=== PATIENT | male | born 1965 | race Caucasian/White ===

== ENCOUNTER → 2021-02-27 15:57 | Outpatient (CLI) | payer OTHER, SELFPAY ==
--- NOTE | ~2021-02-27 | XR_ITS ---
EXAMINATION: XR foot RT min 3V DATE: 02/27/2021 16:19 INDICATION: Right foot pain TECHNIQUE: Weight bearing dorsal plantar, oblique and lateral views of the right foot were obtained. COMPARISON: None. FINDINGS: Bone alignment is normal. No fracture. Joint spaces are normal. No cortical erosions or periosteal re action. Small Achilles and plantar calcaneal spurs. Soft tissues are unremarkable. IMPRESSION: 1. No acute osseous abnormality. Reviewed, dictated and finalized at location A.
== END ==
PROVIDERS: Visit Provider Podiatrist Foot & Ankle Surgery
DX: M79.671 Pain in right foot (principal)
CPT/HCPCS: 73630

== ENCOUNTER 2021-07-09 16:46 | Emergency (ER) | payer OTHER, SELFPAY ==
[2021-07-09 17:01] VITALS: BP 121/67; PULSE 100; RESP 18; TEMP 37; O2SAT 98
--- NOTE | 2021-07-09 17:06 | ED.UPPEXIN ---
HPI - Extremity Injury (Upper) General Chief Complaint: Extremity Injury, Upper Stated Complaint: Swollen Ring Finger Lt hand Time Seen by Provider: 07/09/21 17:06 Source: patient and RN notes reviewed Mode of arrival: ambulatory Limitations: no limitations History of Present Illness HPI narrative: 55-year-old male presents concern for swelling, redness, tenderness to the fourth digit of the left hand. Reports yesterday he pulled out a thorn from that digit that he sustained while cutting down trees. He reports he thinks he removed the entire thorn, is not certain. He denies fever, streaking, body aches, general malaise. Denies distal decrease in sensation, range of motion. Reports he is unable to remove his wedding ring, however has been unable to remove the wedding ring for 10 years because it is too small. MD complaint: injury to: finger Related Data Home Medications Medication Instructions Recorded Confirmed No Home Medications 07/09/21 07/09/21 Allergies Allergy/AdvReac Type Severity Reaction Status Date / Time No Known Allergies Allergy Unknown Verified 07/09/21 17:16 Review of Systems Review of Systems: CONSTITUTIONAL: Denies malaise, chills, sweats, or fever. SKIN: Reports puncture wound to the palmar aspect of the fourth digit of the left hand with surrounding swelling, redness, tenderness. MUSCULOSKELETAL: Denies muscle skeletal pain, decreased range of motion, decreased sensation, myalgia. NEUROLOGIC: Denies numbness, weakness. All systems reviewed & are unremarkable except as noted in HPI and below PMFSH Comments At time of signature, agree with nursing past medical, surgical, social and family history. There is no relevant family history pertinent to the presenting complaint Exam Narrative: GENERAL: Well-appearing, well-nourished, and in no acute distress. HEAD: Normocephalic EYES: PERRLA, conjunctivae clear NECK: Supple. CHEST: Speaks in full sentences. No respiratory distress. HEART: Regular rate and rhythm. Normal and equal peripheral pulses. EXTREMITIES: Fourth digit of left hand has normal strength and sensation. 5/5 strength with digit flexion, extension. Range of motion normal. No clubbing, cyanosis noted. Mild tenderness to palpation at the puncture wound site. Normal digital cascade with flexion of fingers, median, ulnar and radial nerve intact. Normal sensation of each side of finger. Can perform 'okay' sign, 'cross over finger test of index and middle fingers' and 'thumbs up' sign. No scissoring. Normal thumb opposition. Good capillary refill and radial pulse. Distal capillary refill less than 3 seconds. SKIN: Warn, dry, intact, pink. Puncture wound without foreign body visible or palpable noted to the palmar aspect of the fourth digit of the left hand between the PIP and MIP joint with surrounding erythema, edema, mild induration, tenderness. Distal digit has good cap refill, less than 2 seconds, is pink and is not swollen NEURO: Alert and oriented x3. PSYCH: Normal mood and affect Course Course Emergency Course: Discussed ring removal with patient. String method not visible due to size of localized swelling. Patient states he has been unable to remove the ring for many years. Discussed with patient that his circulation is not compromised, through shared decision making decided at this time we will not cut the ring, patient will monitor for signs of circulation compromise while treating his localized cellulitis. Patient instructed to return if symptoms change in the ring needs removed Patient is aware of diagnosis, understands and agrees to treatment plan. Anticipatory guidance given. Patient agrees to follow-up as directed and is aware of reasons to seek care at the emergency department. Portions of this record may have been created with voice recognition software Vital Signs Vital signs: Vital Signs Temperature 98.6 F 07/09/21 17:01 Pulse Rate 100 07/09/21 17:01 Respiratory
== END 2021-07-09 17:35 | disposition home or self-care (01) ==
PROVIDERS: Emergency Provider Nurse Practitioner
DX: L03.012 Cellulitis of left finger (principal)
CPT/HCPCS: 99213; G0463